=== PATIENT | male | born 1955 | race Caucasian/White ===

== ENCOUNTER 2023-06-28 14:56 | Outpatient (CLI) | payer OTHER, SELFPAY ==
--- NOTE | ~2023-06-28 | CT_ITS ---
EXAMINATION: CTA chest DATE: 06/28/2023 15:33 INDICATION: Thoracic aortic ectasia TECHNIQUE: Computed tomography (CT) of the chest was performed with 100 mL Omnipaque-350 intravenous contrast in the arterial phase. Automated exposure control and iterative reconstruction technique wer e employed. The dose-length product was 813.53 mGy-cm. COMPARISON: None. FINDINGS: CHEST: Thoracic aorta: Mild arch calcification. Normal arch anatomy. Maximum transverse dimension of the asc ending aorta is 4.4 cm. Maximum transverse dimension of the descending aorta is 2.6 cm. Lung parenchyma and airways: Bibasilar scarring. Dependent 13 mm somewhat lobulated appearing mixed d ensity focus in the distal trachea just above the level of the bhavik. Multiple sub-6 mm pulmonary no dules. Thoracic inlet, axillae and chest wall: Subcentimeter left thyroid lobe hypodensity which requires no additional evaluation. No axillary lymphadenopathy. Mediastinum: No mass or lymphadenopathy. Heart and pericardium: Mild cardiomegaly. No pericardial effusion.. Coronary artery calcifications: Absent. Pleura: No effusion or mass. Upper abdomen: Multiple simple bilateral renal cyst measuring up to 5.9 cm on the right. Thoracic bones: No acute osseous finding in the chest. Thoracic scoliosis. 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 12 mm mixed density focus in the distal trachea, likely airway debris/secretions, although an endobro nchial mass cannot be excluded. Comparison to outside studies would be helpful if available. Consider referral for bronchoscopy or short-term low-dose noncontrast CT follow-up to assess for persistence. Multiple sub-6 mm pulmonary nodules, requiring no additional evaluation unless the patient is at high risk, in which case consider an optional low-dose noncontrast CT in 12 months. Reviewed, dictated and finalized at location K. 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 12 mm mixed density focus in the distal trachea, likely airway debris/secretion s, although an endobronchial mass cannot be excluded. Comparison to outside sharon dies would be helpful if available. Consider referral for bronchoscopy or short -term low-dose noncontrast CT follow-up to assess for persistence. Multiple sub-6 mm pulmonary nodules, requiring no additional evaluation unless the patient is at high risk, in which case consider an optional low-dose noncon trast CT in 12 months.
[2023-06-28 15:18] LABS: Estimated Glomerular Filt Rate > 60
== END 2023-06-28 14:57 ==
PROVIDERS: PCP Internal Medicine Cardiovascular Disease; Visit Provider Internal Medicine Cardiovascular Disease
DX: I77.810 Thoracic aortic ectasia (principal); R07.9 Chest pain, unspecified; I35.1 Nonrheumatic aortic (valve) insufficiency; I34.0 Nonrheumatic mitral (valve) insufficiency; G47.33 Obstructive sleep apnea (adult) (pediatric); R60.0 Localized edema; I42.9 Cardiomyopathy, unspecified; R06.9 Unspecified abnormalities of breathing; I10 Essential (primary) hypertension; I48.0 Paroxysmal atrial fibrillation; Z13.6 Encounter for screening for cardiovascular disorders; Z13.9 Encounter for screening, unspecified; I50.32 Chronic diastolic (congestive) heart failure; R17 Unspecified jaundice
CPT/HCPCS: 71275; Q9967

== ENCOUNTER 2023-07-27 14:01 | Outpatient (CLI) | payer OTHER, SELFPAY ==
--- NOTE | ~2023-07-27 | CT_ITS ---
EXAMINATION: CT soft tissue neck w con DATE: 07/27/2023 14:40 INDICATION: Localized swelling, mass and lump, neck. TECHNIQUE: Computed tomography (CT) of the neck was performed with 100 mL Omnipaque-350 intravenous c ontrast. Automated exposure control and iterative reconstruction technique were employed. The dose-le ngth product was 471.48 mGy-cm. COMPARISON: Chest CT 06/28/2023 FINDINGS: The trachea is normal. There are no pathologically enlarged lymph nodes. There is mild plaq ue in the proximal internal carotid arteries with 0% stenosis relative to normal distal artery lumen diameters. There is ectasia of ascending aorta measuring 4.6 cm. There is severe cervical spondylosis . IMPRESSION: 1. No evidence of malignancy. Reviewed, dictated and finalized at location A.
--- NOTE | ~2023-07-27 | CT_ITS ---
EXAMINATION: CT brain w con DATE: 07/27/2023 14:39 INDICATION: Localized swelling, mass and lump, neck. TECHNIQUE: Computed tomography (CT) of the head was performed with 100 mL Omnipaque 240 intravenous c ontrast. The mA was adjusted according to patient size. Iterative reconstruction technique was employ ed. The dose-length product was 599.57 mGy-cm. COMPARISON: None FINDINGS: There is no intracranial hemorrhage, acute infarction, or abnormal intracranial mass lesion . The ventricles are normal in size. The orbits are normal. There is mild mucosal thickening in the e thmoid sinuses. The mastoid air cells are normal. IMPRESSION: 1. Normal brain. Reviewed, dictated and finalized at location A. IMPRESSION: 1. Normal brain.
[2023-07-27 14:35] LABS: Estimated Glomerular Filt Rate 55
== END 2023-07-27 14:02 ==
PROVIDERS: PCP Internal Medicine; Visit Provider Internal Medicine Cardiovascular Disease
DX: R22.1 Localized swelling, mass and lump, neck (principal)
CPT/HCPCS: 70460; 70491; Q9967

== ENCOUNTER 2023-08-19 11:02 | Emergency (ER) | payer MEDICARE, SELFPAY ==
--- NOTE | ~2023-08-19 | XR_ITS ---
EXAMINATION: XR knee LT 3V DATE: 08/19/2023 12:46 INDICATION: Left knee joint effusion TECHNIQUE: Weightbearing AP, lateral and sunrise views of the left knee were obtained COMPARISON: None. FINDINGS: Alignment is normal. No fracture. Chondrocalcinosis in the medial lateral compartments. Mild tricomp artmental osteoarthritis with mild joint space narrowing in the medial and patellofemoral compartment s and small marginal osteophyte in all 3 compartments. Increased density at the suprapatellar pouch w ith dystrophic calcification versus calcific debris either associated with synovitis or a moderate-si zed joint effusion. IMPRESSION: 1. Chronic calcinosis and mild medial and patellofemoral compartment, tricompartmental osteoarthritis at the left knee. 2. Moderate-sized knee joint effusion and/or synovitis with dystrophic calcification versus calcific debris at the suprapatellar pouch. Reviewed, dictated and finalized at location A. IMPRESSION: 1. Chronic calcinosis and mild medial and patellofemoral compartment, tricompar tmental osteoarthritis at the left knee. 2. Moderate-sized knee joint effusion and/or synovitis with dystrophic calcific ation versus calcific debris at the suprapatellar pouch.
[2023-08-19 11:05] VITALS: BP 122/80; PULSE 120; RESP 18; TEMP 36.6; O2SAT 100
--- NOTE | 2023-08-19 12:05 | ED.GENADULT ---
HPI - General Adult General Chief complaint: Extremity Injury, Lower Stated complaint: L knee swelling Time Seen by Provider: 08/19/23 12:05 Source: patient Mode of arrival: ambulatory Limitations: no limitations History of Present Illness HPI narrative: This is a 68-year-old male with PMH of osteoarthritis who presents to the ED with chief complaint of left knee pain for the past couple of days. He has longstanding history of arthritis in the right knee and is likely scheduling right knee replacement soon. He states that the left knee pain this week is brand new for him. Reports effusion to the left knee. No specific injury. He does a lot of walking and sitting to standing at his job. States that the pain is causing difficulty with transitioning from sitting to stand. States that once he is walking the pain seems to get a little better. Denies fevers, chills, numbness, weakness. Related Data Allergies Allergy/AdvReac Type Severity Reaction Status Date / Time naproxen AdvReac Nausea Verified 08/19/23 11:07 Review of Systems Review of Systems: All systems as dictated in HPI Exam Narrative: GENERAL: Well-appearing, well-nourished, and in no acute distress. HEAD: Normocephalic, atraumatic. EYES: PERRLA and EOMI. ENT: Nares clear, no rhinorrhea or epistaxis. Mucous membranes moist. Oropharynx without tonsillar hypertrophy exudate or other lesions. NECK: Supple. No adenopathy or masses. CHEST: No respiratory distress. Clear to auscultation. No wheezes rales or rhonchi HEART: Regular rate and rhythm. No murmur heard. Normal peripheral pulses. ABDOMEN: Soft, nontender, nondistended, normal active bowel sounds. MSK: Left knee effusion noted. Minimal warmth. Mild tenderness to the medial joint line. Otherwise no tenderness. Near full active and passive range of motion. Right knee benign SKIN: Warm, dry, no rash. NEURO: Alert and oriented x4. No focal deficits. PSYCH: Normal mood and affect. Course Vital Signs Vital signs: Vital Signs Temperature 97.8 F 08/19/23 11:05 Pulse Rate 120 H 08/19/23 11:05 Respiratory Rate 18 08/19/23 11:05 Blood Pressure 122/80 08/19/23 11:05 Pulse Oximetry 100 08/19/23 11:05 Oxygen Delivery Room Air 08/19/23 11:05 Temperature 97.8 F 08/19/23 11:05 Pulse Rate 120 H 08/19/23 11:05 Respiratory Rate 18 08/19/23 11:05 Blood Pressure 122/80 08/19/23 11:05 Pulse Oximetry 100 08/19/23 11:05 Oxygen Delivery Room Air 08/19/23 11:05 Medical Decision Making MDM Narrative Medical decision making narrative: This is a 68-year-old male who presents to the ED with chief complaint of atraumatic left knee pain for the past several days. Vitals are normal. Exam remarkable for the above. No evidence of infectious or inflammatory arthritis on exam. X-ray show osteoarthritis throughout the left knee. He has history of this in the right knee. We discussed that we will try a Medrol Dosepak while he waits is ortho appointment in a couple of weeks. Pt will be discharged in stable condition. Return precautions given and supportive measures discussed. Pt is understanding and agreeable with plan for discharge and follow-up with PCP. Vital Signs Vital Signs: Vital Signs Temperature 97.8 F 08/19/23 11:05 Pulse Rate 120 H 08/19/23 11:05 Respiratory Rate 18 08/19/23 11:05 Blood Pressure 122/80 08/19/23 11:05 Pulse Oximetry 100 08/19/23 11:05 Oxygen Delivery Room Air 08/19/23 11:05 Temperature 97.8 F 08/19/23 11:05 Pulse Rate 120 H 08/19/23 11:05 Respiratory Rate 18 08/19/23 11:05 Blood Pressure 122/80 08/19/23 11:05 Pulse Oximetry 100 08/19/23 11:05 Oxygen Delivery Room Air 08/19/23 11:05 Discharge Plan Discharge Clinical Impression: Arthritis of knee, left Patient Disposition: Home, Self-Care Condition: Stable Instructions: Antibiotic Form Additional Instructions: Your exam and imagin
[2023-08-19] MEDS: predniSONE 20 MG TABLET 40 MG PO (12:37)
== END 2023-08-19 13:19 | disposition home or self-care (01) ==
PROVIDERS: Emergency Provider Physician Assistant; PCP Internal Medicine
DX: M17.0 Bilateral primary osteoarthritis of knee (principal)
CPT/HCPCS: 73562; 99283; J7512

== ENCOUNTER 2024-08-29 13:58 | Outpatient (CLI) | payer MEDICARE, SELFPAY ==
--- OUTSIDE RECORDS SUMMARY | 2024-08-29 14:07 | XMS_ITS | Clinical Summary ---
Author Organization [facility] [place] Address [address] [address] Care Team Providers Care Medical Asst Name Role Phone Thomas Mae MD Primary Care Provider [phone] Active Problems No known active problems Encounters Date Type Department Care Team Description 06/07/2024 Results Follow-Up [facility] [place] [address] [place] [address] Ximena Cartagena, ANP TSH, LIPID PANEL, COMPREHENSIVE METABOLIC PANEL, CBC WITH DIFFERENTIAL 06/04/2024 8:40 AM CDT Office Visit [facility] [place] [address] [place] [address] Screening for condition (Primary Dx) from Last 3 Months Immunizations Immunization Administration Dates Next Due INFLUENZA VACCINE TRIVALENT SPLIT VIRUS, (6 MOS UP), 0.5ML (PF), IM 11/30/2023 Social History Tobacco Use Types Packs/Day Years Used Date Smoking Tobacco: Never Assessed Sex and Gender Information Value Date Recorded Sex Assigned at Not on file Legal Sex Male 6:57 PM [employer] Gender Identity Not on file Sexual Orientation Not on file Last Filed Vital Signs Vital Sign Reading Time Taken Comments Blood Pressure 108/68 06/04/2024 8:33 AM CDT Pulse - - Temperature - - Respiratory Rate - - Oxygen Saturation - - Inhaled Oxygen Concentration - - Weight 104.5 kg (230 lb 6.4 oz) 06/04/2024 8:33 AM CDT Height 182.9 cm (6') 06/04/2024 8:33 AM CDT Body Mass Index 31.25 06/04/2024 8:33 AM CDT Plan of Treatment Health Maintenance Due Date Last Done Comments Pre-Diabetes and Diabetes Screening 1955 COLORECTAL SCREENING 2002 Colorectal Cancer Screening 2002 FIT-DNA Q 3 years 2002 FIT/FOBT Q 1 year 2002 Flex Sig/CT Colonography Q 5 years 2002 ZOSTER VACCINE (1 of 2) 08/05/2007 RSV VACCINE (60+ or ) (1 - Risk 60-74 years 1-dose series) 2017 PNEUMOCOCCAL VACCINE 50+ YEA RS (2 of 2 - PPSV23) 01/19/2024 11/24/2023 DTAP/TDAP/TD VACCINES (2 - Td or Tdap) 09/13/2028 INFLUENZA VACCINE Completed 11/30/2023, 12/26/2019 Procedures Procedure Name Priority Date/Time Associated Diagnosis Comments CBC WITH DIFFERENTIAL Routine 06/04/2024 8:28 AM CDT Screening for condition COMPREHENSIVE METABOLIC PANEL Routine 06/04/2024 8:28 AM CDT Screening for condition LIPID PANEL Routine 06/04/2024 8:28 AM CDT Screening for condition TSH Routine 06/04/2024 8:28 AM CDT Screening for condition from Last 3 Months Results * (ABNORMAL) CBC WITH DIFFERENTIAL (06/04/2024 8:28 AM CDT) WBC 11.2(H) 3.8 - 10.8 Thousand/u L [facility] RBC 4.91 4.20 - 5.80 Million/uL [facility] HEMOGLOBIN 14.7 13.2 - 17.1 g/dL [facility] HEMATOCRIT 44.1 38.5 - 50.0 % [facility] MCV 89.8 80.0 - 100.0 fL [facility] MCH 29.9 27.0 - 33.0 pg [facility] MCHC 33.3 32.0 - 36.0 g/dL [facility] Comment: For adults, a slight decrease in the calculated MCHC value (in the range of 30 to 32 g/dL) is most likely not clinically significant; however, it should be interpreted with caution in correlation with other red cell parameters and the patient's clinical condition. RDW 13.4 11.0 - 15.0 % [facility] PLATELETS 281 140 - 400 Thousand/u L [facility] MPV 10.6 7.5 - 12.5 fL [facility] NEUTROPHIL ABSOLUTE 4,782 1,500 - 7,800 cells/uL [facility] LYMPHOCYTE ABSOLUTE 1,646 850 - 3,900 cells/uL [facility] MONOCYTE ABSOLUTE 795 200 - 950 cells/uL [facility] EOSINOPHIL ABSOLUTE 3,920(H) 15 - 500 cells/uL [facility] BASOPHILS ABSOLUTE 56 0 - 200 cells/uL [facility] NEUTROPHIL 42.7 % [facility] LYMPHOCYTES 14.7 % [facility] MONOCYTE 7.1 % [facility] EOSINOPHILS 35.0 % [facility] BASOPHILS 0.5 % [facility] COMMENT HEMATOLOGY [facility] Comment: Review of peripheral smear confirms automated results. Test Performed at: [facility] [address] [place] [id number] Dhruv Gentile MD Blood 06/04/2024 8:28 AM CDT 06/05/2024 4:31 AM CDT us Ximena Cartagena ANP HEMATOLOGY ORDERABLES Final Result [facility] [phone] [facility] [address] * TSH (06/04/2024 8:28 AM CDT) TSH 0.70 0.40 - 4.50 mIU/L [facility] Comment: Test Performed at: [facility] [address] [facility] [place] [address] Dhruv Gentile MD Blood 06/04/2024 8:28 AM CDT 06/05/2024 4:31 AM CDT us Ximena Cartagena [facility] CHEMISTRY ORDERABLES Final R esult [facility] [phone] [facility] [address] * (ABNORMAL) LIPID PANEL (06/04/2024 8:28 AM CDT) CHOLESTEROL 170 <200 mg/dL [facility] HDL 54 > OR = 40 mg/dL [facility] TRIGLYCERIDE 56 <150 mg/dL [facility] LDL CALCULATED 102(H) mg/dL (calc) [facility] Comment: Reference range: <100 Desirable range <100 mg/dL for primary prevention; <70 mg/dL for patients with CHD or diabetic patients with > or = 2 CHD risk factors. LDL-C is now calculated using the Enrrique-Eileen calculation, which is a validated novel method providing better accuracy than the Friedewald equation in the estimation of LDL-C. Enrrique MCKEON et al. MAGUI. 2013;310(19): 2451-0244 (http://education.I & Combine.IFTTT/faq/FIR886) CHOL/HDL RATIO 3.1 <5.0 (calc) [facility] NON-HDL CHOLESTEROL 116 <130 mg/dL (calc) [facility] Comment: For patients with diabetes plus 1 major ASCVD risk factor, treating to a non-HDL-C goal of <100 mg/dL (LDL-C of <70 mg/dL) is considered a therapeutic option. Test Performed at: [facility] [address] [facility] [place] [address] Dhruv Gentile MD Blood 06/04/2024 8:28 AM CDT 06/05/2024 4:31 AM CDT us Ximena Cartagena [facility] CHEMISTRY ORDERABLES Final R esult [facility] [phone] [facility] [address] [facility] [place] [address] * COMPREHENSIVE METABOLIC PANEL (06/04/2024 8:28 AM CDT) GLUCOSE 94 65 - 99 mg/dL [facility] Comment: Fasting reference interval BUN 16 7 - 25 mg/dL [facility] CREATININE 1.05 0.70 - 1.35 mg/dL [facility] GFR 78 > OR = 60 mL/min/1. 73m2 [facility] BUN/CREAT RATIO SEE NOTE: 6 - 22 (calc) [facility] Comment: Not Reported: BUN and Creatinine are within reference range. SODIUM 141 135 - 146 mmol/L [facility] POTASSIUM 4.2 3.5 - 5.3 mmol/L [facility] CHLORIDE 106 98 - 110 mmol/L [facility] CO2 27 20 - 32 mmol/L [facility] CALCIUM 9.2 8.6 - 10.3 mg/dL [facility] TOTAL PROTEIN 6.8 6.1 - 8.1 g/dL [facility] ALBUMIN 4.1 3.6 - 5.1 g/dL [facility] GLOBULIN 2.7 1.9 - 3.7 g/dL (calc) [facility] ALBUMIN/GLOBULIN RATIO 1.5 1.0 - 2.5 (calc) [facility] BILIRUBIN TOTAL 1.0 0.2 - 1.2 mg/dL [facility] ALKALINE PHOSPHATASE 80 35 - 144 U/L [facility] AST 13 10 - 35 U/L [facility] ALT 14 9 - 46 U/L [facility] Comment: Test Performed at: [facility] [address] [place] [address] Dhruv Gentile MD Blood 06/04/2024 8:28 AM CDT 06/05/2024 4:31 AM CDT us Ximena Cottrell Cartagena ANP CHEMISTRY ORDERABLES Final R esult [facility] [phone] [facility] [address] [place] [address] from Last 3 Months Insurance [employer] [facility] Care Teams Medical Asst Relationship Specialty Start Date End Date Thomas Mae MD [address] [address] PCP - General Internal Medicine 07/11/23
--- OUTSIDE RECORDS SUMMARY | 2024-08-29 14:07 | XMS_ITS | Clinical Summary ---
Author Organization [facility] Address [address] [place] [address] Care Team Providers Care Cattle Dipper Name Role Phone Thomas Mae MD Primary Care Provider [phone] Allergies Active Allergy Reactions Criticality Noted Date Comments Naproxen Nausea & Vomiting Low 09/07/2023 Medications albuterol HFA (PROVENTIL HFA,VENTOLIN HFA,PROAIR HFA) 90 mcg/actuation inhaler Inhale 2 puffs every 4 (four) hours as needed for wheezing or shortness of breath Active dilTIAZem CD (CARDIZEM CD) 300 mg 24 hr capsule Take 1 capsule (300 mg total) by mouth every morning 4 Active dofetilide (TIKOSYN) 500 mcg capsule Take 1 capsule (500 mcg total) by mouth 2 (two) times a day 4 Active Trelegy Ellipta 100-62.5-25 mcg inhaler Inhale 1 puff every morning Active losartan (COZAAR) 100 mg tablet Take 1 tablet (100 mg total) by mouth every morning 4 Active magnesium oxide (MAG-OX) 400 mg (241.3 mg elemental magnesium) tablet Take 1 tablet (400 mg total) by mouth 2 (two) times a day 4 Active metoprolol tartrate (LOPRESSOR) 50 mg immediate release tablet Take 1 tablet (50 mg total) by mouth 2 (two) times a day 4 Active montelukast (SINGULAIR) 10 mg tablet Take 1 tablet (10 mg total) by mouth nightly Active furosemide (LASIX) 20 mg tablet Take 1 tablet (20 mg total) by mouth every evening Active melatonin 5 mg tablet Take 1 tablet (5 mg total) by mouth nightly Active ergocalciferol (VITAMIN D) 50,000 unit capsule TAKE 1 CAP 2 X A WEEK FOR 8 WEEKS THEN FOLLOW UP WITH YOUR PCP. 16 capsule 4 Active acetaminophen (TYLENOL) 500 mg tablet Take 2 tablets (1,000 mg total) by mouth every 8 (eight) hours 90 tablet 4 Active oxyCODONE (ROXICODONE) 5 mg immediate release tabletIndication s:Pain Take 1 tablet (5 mg total) by mouth every 4 (four) hours as needed for pain 30 tablet 4 Active senna-docusate (PERICOLACE) 8.6-50 mg Take 2 tablets by mouth daily 80 tablet 4 Active Eliquis 5 mg tablet Take 1 tablet (5 mg total) by mouth 2 (two) times a day HOLD X 7 DAYS AFTER SURGERY AND THEN RESUME 4 Active apixaban (ELIQUIS) 2.5 mg tablet Take 1 tablet (2.5 mg total) by mouth 2 (two) times a day for 7 days THEN RESUME ELIQUIS 5 MG TWICE DAILY PREVIOUSLY PRESCRIBED 14 tablet 4 Active traMADoL (ULTRAM) 50 mg tabletIndication s:Postoperative pain Take 1 tablet (50 mg total) by mouth every 8 (eight) hours as needed for pain 42 tablet 4 Active meloxicam (MOBIC) 15 mg tablet Take 0.5 tablets (7.5 mg total) by mouth daily 30 tablet [address] (PROTONIX) 20 mg EC tabletIndication s:Mucositis Prophylaxis Take 1 tablet (20 mg total) by mouth daily FOR GI PROTECTION WHILE TAKING MELOXICAM 30 tablet 4 Active Active Problems Problem Noted Date Diagnosed Date Arthritis of right knee 12/30/2023 Primary osteoarthritis of right knee 09/19/2023 Knee pain 01/11/2012 Surgical History Surgery Date Site/Laterality Comments HERNIA REPAIR KNEE SURGERY 02/28/1978 - 02/27/1979 TONSILLECTOMY WISDOM TOOTH EXTRACTION COLONOSCOPY Medical History Medical History Date Comments A-fib (HCC) HTN (hypertension) History of cardioversion Family History Medical History Relation Name Comments Anesthesia problems Neg Hx Social History Tobacco Use Types Packs/Day Years Used Date Smoking Tobacco: Never Passive Smoke Exposure: Never Smokeless Tobacco: Never Tobacco Cessation:Counseling Given: Not Answered AUDIT-C Answer Date Recorded Q1: How often do you have a drink containing alcohol? Never 12/15/2023 Q2: How many drinks containi ng alcohol do you have on a typical day when you are drinking? Patient does not drink Q3: How often do you have si x or more drinks on one occasion? Never 12/15/2023 Personal Safety Answer Date Recorded Have you ever been in or are you currently in a harmful physical or emotional relationship or is someone making you feel afraid or unsafe? 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 Gender Identity Not on file Sexual Orientation Not on file Obstetrics History Last Filed Vital Signs Vital Sign Reading Time Taken Comments Blood Pressure 124/64 12/30/2023 1:15 PM CDT Pulse 63 12/30/2023 1:15 PM CDT Temperature 36.8 C (98.2 F) 12/30/2023 1:15 PM CDT Respiratory Rate 30 12/30/2023 12:25 PM CDT Oxygen Saturation 95% 12/30/2023 1:15 PM CDT Inhaled Oxygen Concentration - - Weight 103.4 kg (228 lb) 12/30/2023 6:20 AM CDT Height 182.9 cm (6') 12/30/2023 6:20 AM CDT Body Mass Index 30.92 12/30/2023 6:20 AM CDT Plan of Treatment Health Maintenance Due Date Last Done Comments Colon Cancer Screening-Colonoscopy 1955 Depression Screening 1955 Hepatitis C Screening 1955 Prostate Cancer Screening-PSA 1957 Hepatitis B Screening 08/05/1975 Zoster Vaccine (1 of 2) 08/05/2007 Well Visit 65+ 2022 Covid-19 Vaccine (3 - 2023-2 5 season) 2023 05/05/2020, 05/06/2019 Pneumococcal vaccine 65+ (2 of 2 - PPSV23) 01/19/2024 11/24/2023 Influenza Vaccine (#1) 2024 , 01/20/2022, 01/02/2021, Additional history exists Fall Risk Assessment 12/29/2024 12/30/2023 DTaP/Tdap/Td Vaccine (2 - Td or Tdap) 09/13/2028 09/13/2018 Medical Devices Implanted Type Area Calender Let Off Helper Device Identifier Shelf Expiration Date Model / Serial / Lot [employer] Attune Fb Tib Base Sz 9 Por [id number] - [id number] Implanted:Qty: 1 on 12/30/2023 at [facility] Right: Knee [employer] 02/27/2033 [id number] / / [id number] [employer] Attune Cruciate Retain Cementless Knee Right 8 Component Femoral [id number] - [id number] Implanted:Qty: 1 on 12/30/2023 at [facility] Right: Knee [employer] 05/28/2033 [id number] / / [id number] [employer] Insert Attune Right Medial Stabilized Size 8 10mm [id number] - [id number] Implanted:Qty: 1 on 12/30/2023 at [facility] Right: Knee [employer] 05/29/2031 [id number] / / [id number] Insurance [employer]IC[employer] PPO [employer] MED[employer] PPO Advance Directives For more information, please contact: [phone] * Full Code (Latest Code Status on File) Date Activated Date Inactivated Comments 12/30/2023 9:46 AM 12/30/2023 5:57 PM Care Teams Cattle Dipper Relationship Specialty Start Date End Date Thomas Mae MD [address] [place] [address] PCP - General Internal Medicine 11/04/22
--- OUTSIDE RECORDS SUMMARY | 2024-08-29 14:07 | XMS_ITS | Continuity of Care Document ---
Author Organization [facility] Address [address] [place] [address] Phone Care Team Providers Care Border Inspector Name Role Phone Eddy OD, Jaswant Unavailable Unavailable Procedures Procedure Date Office/outpatient Visit, [facility] Advance Directives Directive Yes / No Effective Date File Name No Information Encounters Encounter Description Practice Location Reason(s) For Visit Diagnoses Date Provider Providers Copied on Encounter [facility]pat [facility] [address], [place], [place], [id number], [place] tel:[phone] [facility] [address] [place] No Information [phone] Eddy OD Jaswant. [address] , [address], [place], [address], [place]. tel:[phone] Family History Family Member Type Diagnosis Age At Onset No Information Payers Payer name Insurance type Covered constitution party ID Authoriza tion(s) No Information Social History Type Description Quantity Date Captured Comments Sex Male Smoking Status No Information Chief Complaint And Reason For Visit No Information Reason For Referral Reason For Referral No Information History Of Present Illness Encounter Date Complaint History Of Prese nt Illness No Information Functional Status Date Functional Assessmen t No Information Instructions Date Instruction Additional Infor mation No Information Assessments Type Assessment Date No Information Patient Care Teams Name Effective Dates (start - stop) Status Members No Information
--- OUTSIDE RECORDS SUMMARY | 2024-08-29 14:07 | XMS_ITS | Clinical Summary ---
Author Organization [facility] Address [address] [place] [address] Care Team Providers Care Field Worker Name Role Phone Terrell Garcia MD Primary Care Provider [phone] Source Comments [facility],non-[facility] Affiliates and Associated Physician Practices is amultiple site organization consisting of ambulatory clinics and hospital sitesin [place], [place], [place] and [place]. This disclosure is being madepursuant to the Care Everywhere program and may not contain all information available regarding this patient. 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 Gender Identity Not on file Sexual Orientation Not on file Last Filed Vital Signs Vital Sign Reading Time Taken Comments Blood Pressure - - Pulse - - Temperature - - Respiratory Rate - - Oxygen Saturation - - Inhaled Oxygen Concentration - - Weight 102.1 kg (225 lb) 03/25/2015 9:47 AM MANAGER FEDERAL Height 182.9 cm (6') 03/25/2015 9:47 AM MANAGER FEDERAL Body Mass Index 30.52 03/25/2015 9:47 AM MANAGER FEDERAL Plan of Treatment Health Maintenance Due Date Last Done Comments COLOGUARD (AGES 45-75) - COL ON CA SCREENING 1957 COLON MONITORING 1957 COLONOSCOPY - COLON CA SCREENING 1957 CT COLONOGRAPHY - COLON CA SCREENING 1955 Colorectal Cancer Screening 1957 FIT - COLON CA SCREENING 1957 FLEX SIG - COLON CA SCREENING 1957 LIPID TESTING 1957 HEPATITIS C SCREENING 07/31/1975 DTAP/TDAP/TD VACCINES (1 - Tdap) 1976 PNEUMOCOCCAL VACCINE 50+ (1 of 1 - PCV) 08/05/2007 ZOSTER VACCINE (1 of 2) 08/05/2007 COVID-19 VACCINE (1 - 2023-2 5 season) 2023 DEPRESSION SCREENING 02/29/2024 INFLUENZA VACCINE (Season Ended) 2024 Respiratory Syncytial Virus (RSV) Vaccine Pt: or over 60 yrs (1 - 1-dose 75+ series) 2032 HEPATITIS B VACCINE Aged Out No longe r eligible based on patient's age to complete this topic HIB VACCINE Aged Out No longer eligi ble based on patient's age to complete this topic HPV VACCINE Aged Out No longer eligi ble based on patient's age to complete this topic MENINGOCOCCAL (Group B) VACC INE SHARED DECISION-MAKING Aged Out No longer eligibl e based on patient's age to complete this topic MENINGOCOCCAL GROUPS A/C/Y/W VACCINE Aged Out No longer eligible b ased on patient's age to complete this topic Insurance [facility] Care Teams Field Worker Relationship Specialty Start Date End Date Terrell Garcia MD PCP - General Internal Medicine 03/20/15
--- OUTSIDE RECORDS SUMMARY | 2024-08-29 14:07 | XMS_ITS | Data Portability ---
Author Organization [place] - [facility], Main Office Address [address] [place] [address] Assessment Encounter Date Assessment Date Assessment LastModified by Organization Details LastModified Time 11/11/2022 11/11/2022 HPI: Patient came in today for cortisone injection right knee. We referred him over to [place] for total knee arthroplasty. He is not going to be able to be seen in till January of this year. And knows that surgery will be at least after the of the year. This gives him enough time to get a cortisone injection today and still be able to proceed with surgery on time. He has severe lateral compartment osteoarthritis . Physical exam: 67-year-old male alert pleasant. He has a mild valgus alignment to the right knee. Moderate effusion. No redness or warmth. Range of motion is from 2-135 degrees. ChloraPrep was used on skin 20 mg Kenalog and 3 cc of 0.5% ropivacaine was injected into the right knee. Risk infection discussed. Impression: 67-year-old male who has severe lateral compartment osteoarthritis . At this point he will continue care with Dr. Ott for surgical treatment he will follow-up as needed. [email or web address] Not available 11/11/2022 15:42:11 Plan of Treatment Reminders Order Date Submit Date Provider Last Modified By Organization Details Last Modified Time Details Appointments None recorded. Lab PSA, serum or plasma [email or web address] [facility] (Lab), [address] [place], [address], 12:38:41 PSA, serum or plasma [email or web address] [facility] (Lab), [address], [place], [address], 4 08:48:31 Referral None recorded. Procedures injection/a spiration joint/bursa (PROC) - in office procedure, administere d by provider 2022 023 [email or web address] In-Office Order, Internal Use Only DO Not Attach Compendium DO Not Attach Compendium, Do Not Delete/merge, [address] 3 15:09:01 Surgeries None recorded. Imaging None recorded. Medication Orders montelukast 10 mg tablet 2024 025 [id number], [address] , [place], [place], [id number], 5 17:13:48 Trelegy Ellipta 100 mcg-62.5 mcg-25 mcg powder for inhalation 2024 025 [facility], [address] , [place], [place], [id number], 5 17:13:47 albuterol sulfate HFA 90 mcg/actuati on aerosol inhaler 2023 024 [email or web address] [facility]41412, [address] [place], [place], [id number], 4 12:30:04 Kenalog 10 mg/mL suspension for injection 2022 023 [email or web address] [facility] #66733, [address], [place], [id number], 3 07:34:45 ropivacaine (PF) 5 mg/mL (0.5 %) injection solution 2022 023 [email or web address] [facility] #24332, [address], [place], [place], [id number], 3 07:34:38 lidocaine 5 % topical patch 2022 023 [email or web address] [facility] #53449, [address], [place], [place], [id number], 08:50:49 Patient TargetsNo targets recorded. Patient Instructions Encounter Date Encounter Id Patient Instructions Last Modified By Organization Details Last Modified Time 07/13/2023 [id number] risk assessment* [email or web address] Not availabl e 07/14/2023 10:20:28 Personalized a lt Plan and Screening Recommendations Advance Directives - Do you have one? No Advance Directives - Do we have your advance directive on file in your health record? Primary Prevention/Interven tion (prevents or decreases the chance of common diseases from occurring) Smoking Risk: Non Smoker Alcohol Misuse Screening: Negative Weight: Overweight try to lose 10% of your body weight Physical activity: Need more exercise/physical activity Nutrition: Average Eat heart healthy diet Fall Risk (screened today): Low Vaccines Pneumococcal: Influenza: Declined Chronic Disease Risks Stroke: Intermediate Risk Active diagnosis, Continue current treatment plan Heart Attack: Low risk I have no recommendations Clogging of the Arteries: Low risk I have no recommendations Diabetes: Low Risk I have no recommendations Secondary Prevention/Interven tion (detects treatable diseases before they may cause symptoms, disability, or ) Prostate Cancer Screening: recommended Colon Cancer Screening: Colonoscopy Date Screening Last Performed: Eye Disease Screening: Your next exam in: goes yearly Dementia Risk: Low I have no recommendations Depression Screening: Negative I have no recommendations [email or web address] Not available 07/13/2023 16:39:50 Reason for Referral None Reported. Results Created Date Observation Date Name Description Value Unit Range Abnormal Flag Note LastModifiedBy Organization Detail LastModifiedTime 06/20/1906/19/2024 PSA SCREE N PSA medicare screen 9.39 NG/mL 0.00-[address] [facility] (Lab) [address], [place], [address], 06/19/2024 20:52:41 11/05/19 XR, knee No observ ation record ed. [email or web address] [facility] [address], [place], [address], 11/08/2022 11:45:52 11/05/19 23 10/20/2022 trans -thor acic echoc ardio gram (TTE) (PROC ) No observ ation record ed. [email or web address] Not Available 2022 11:39:13 11/05/19 23 10/20/2022 US, duple x, venou s, extre mity, compl ete No observ ation record ed. [email or web address] Not Available 2022 11:39:13 04/29/19 24 04/26/2023 US, echoc ardio gram No observ ation record ed. [email or web address] Not Available 2023 10:44:53 Result Notes None recorded. Problems Name Problem SNOMED Code Status Onset Date Resolution Date Notes Provider Name and Address Organization Details Recorded Time Paroxysma l atrial fibrillat ion with rapid ventricul ar response 5338428135 Completed 202106/20/2024 CHAKA Hernandez, [employer] 5 08:30:20 Asthma 122303394 Active 2016 Not Available [facility] 3 14:15:07 Gastroeso phageal reflux disease 169043880 Active 2016 Not Available [facility] 3 14:15:07 Dyspnea 557104108 Active 2021 Not Available [facility] 3 14:15:07 Knee pain Active 2020 Not Available [facility] 3 14:15:07 Knee pain Completed 201606/15/2017 CHAKA Hernandez, [employer] 3 08:51:37 Osteoarth ritis of right knee joint 82340083777 9100 Completed 201810/16/2021 Rola kelley RMA null, [place] [facility] 5 08:29:45 Arthritis 9322567 Active 2016 Not Available [facility] 3 14:15:07 Osteoarth ritis 481331888 Active 2021 knee Not Available [facility] 3 14:15:07 Dizziness 333596276 Completed 202107/05/2022 Rola kelley RMA null, [place] [facility] 5 08:30:26 Hernia of anterior abdominal wall 957819510 Active 2019 Not Available [facility] 3 14:15:07 Obesity 775437481 Active 2016 Not Available [facility] 3 14:15:07 Exacerbat ion of intermitt ent asthma 664432803 Active 2021 Not Available [facility] 3 14:15:07 Pain of right knee joint 71025372649 4100 Completed 202110/16/2021 Rola kelley RMA null, [place] [facility] 3 08:51:41 Essential hypertens ion 66885409 Active 2016 Not Available [facility] 3 14:15:07 Essential tremor 777887142 Active 2019 Not Available [facility] 3 14:15:07 Allergic rhinitis 26251807 Active 2016 Not Available [facility] 3 14:15:07 Sleep apnea 21256234 Active 2022 Not Available [facility] 3 14:15:07 Pain of right knee joint 11053714794 4100 Completed 202207/05/2022 Rola kelley RMA null, [place] [facility] 3 08:51:41 Postural dizziness 596030086 Completed 202206/20/2024 Rola kelley RMA null, [place] [facility] 5 08:29:51 Dizziness 952034235 Completed 202206/20/2024 Rola kelley RMA null, [place] [facility] 5 08:30:26 Paroxysma l atrial fibrillat ion 005158286 Active 2022 Rola kelley, RMA null, [place] [facility] 5 08:30:15 Osteoarth ritis of right knee joint 04976195215 9100 Completed 202206/20/2024 Rola kelley, RMA null, [place] - [facility] 5 08:29:45 Edema 176354606 Active 2023 Rola Vogel allie, RMA null, [place] [facility] 5 08:30:31 Prostate specific antigen above reference range 219096365 Active 2024 Marlys Lemus MA null, [facility] 5 14:37:55 Notes:[facility] home sleep study 02/09/22 AHI = 40, supine AHI = 64 [facility] titration sleep study 04/06/22 Respironics large Elayne nasal mask @ 11 cmH2O Medical History: Essential tremor Rhinitis Obesity with severe OSAHS, AHI = 40, 02/09/22, on CPAP c/o IVRC Hypertension EF 55% Mod AR/MR/TR Paroxysmal atrial fibrillation FIDEL Abdominal wall hernia PLMD OA Problem Notes None recorded. Procedures Surgical History Date Name Laterality Status Provider Name and Address Organization Details Recorded Time Orthopedic Surgery completed Not Available [facility] 04/28/2022 18:52:21 Hernia Repair completed Not Available [facility] 04/28/2022 18:52:21 Imaging Results None recorded. Procedure Notes None recorded. Medical Equipment None Reported. Allergies Allergen ID Allergen Name Allergen Category Reaction Reaction Severity Criticality Documentation Date Start Date Code Code System Note Provider Name and Address Organization Details Recorded Time 75620 Naprosyn medicatio n Not available Not available Not available 04/28/2022 2 RxNorm Not Available [facility] 18:54:06 Medications Name Sig Start Date Stop Date Status Note LastModified by Organization Details LastModified Time Prescriptio n - Change 11/08 completed Not Available Not Available Not Available meloxicam 15 mg tablet 06/19 completed Not Available Not Available Not Available bupivacaine HCl 0.5 % (5 mg/mL) injection solution In office injection administe red by the provider 08/06 completed Not Available Not Available Not Available Zithromax Z-Alistair 250 mg tablet Take 2 TABLET EVERY DAY by oral route for 1 day. then 1 tab a day for 4 days 11/25 completed Not Available Not Available Not Available tramadol 50 mg tablet TAKE 1 TABLET BY MOUTH EVERY 6 HOURS NEEDED active Not Available Not Available No t Available acetaminoph en 500 mg tablet TAKE 2 TABLETS BY MOUTH EVERY 8 HOURS active Not Available Not Available No t Available quinapril 40 mg tablet TAKE 1 TABLET BY MOUTH DAILY active Not Available Not Available No t Available pantoprazol e 20 mg tablet,elmo yed release TAKE 1 TABLET BY MOUTH DAILY FOR GI PROTECTIO N WHILE TAKING MELOXICAM 06/19 completed Not Available Not Available Not Available famotidine 20 mg tablet QD 03/29 completed Not Available Not Available Not Available magnesium oxide 400 mg (241.3 mg magnesium) tablet TAKE 1 TABLET BY MOUTH TWICE DAILY active Not Available Not Available No t Available Kenalog 10 mg/mL suspension for injection in office 02/07 completed [facility]: 0003- [phone]- [phone] Not Available Not Available Not Available diltiazem CD 300 mg capsule,ext ended release 24 hr TAKE 1 CAPSULE BY MOUTH EVERY DAY active Not Available Not Available No t Available lidocaine 5 % topical patch APPLY 1 PATCH BY TOPICAL ROUTE ONCE DAILY (MAY WEAR UP TO 12HOURS.) active Not Available Not Available No t Available metoprolol tartrate 50 mg tablet TAKE 1 TABLET BY MOUTH THREE TIMES DAILY active Not Available Not Available No t Available diclofenac sodium 75 mg tablet,elmo yed release TAKE 1 TABLET BY MOUTH TWICE DAILY NEEDED 11/04 completed Not Available Not Available Not Available montelukast 10 mg tablet TAKE 1 TABLET BY MOUTH EVERY NIGHT AT BEDTIME 2024 active JESSICA ok to rf Not Available Not Available Not Available hydrochloro thiazide 25 mg tablet TAKE 1 TABLET BY MOUTH DAILY 08/05 completed Not Available Not Available Not Available mupirocin 2 % topical ointment APPLY TO BOTH NOSTRILS TWICE DAILY FOR 5 DAYS PRIOR TO SURGERY 06/19 completed Not Available Not Available Not Available furosemide 20 mg tablet TAKE 1 TABLET BY MOUTH TWICE DAILY active Not Available Not Available No t Available ergocalcife rol (vitamin D2) 1,250 mcg (50,000 unit) capsule TAKE 1 CAPSULE BY MOUTH 2 TIMES A WEEK FOR 8 WEEKS. FOLLOW UP WITH PCP active Not Available Not Available No t Available methylpredn isolone 4 mg tablets in a dose pack FOLLOW PACKAGE DIRECTION S 06/19 completed Not Available Not Available Not Available albuterol sulfate HFA 90 mcg/actuati on aerosol inhaler INHALE 2 PUFFS BY MOUTH EVERY 4 HOURS NEEDED active Not Available Not Available No t Available losartan 100 mg tablet TAKE 1 TABLET BY MOUTH EVERY DAY active Not Available Not Available No t Available dofetilide 500 mcg capsule TAKE 1 CAPSULE BY MOUTH TWICE DAILY active Not Available Not Available No t Available doxycycline hyclate 100 mg tablet Take 1 tablet twice a day by oral route. active Not Available Not Available No t Available oxycodone 5 mg tablet 06/19 completed Not Available Not Available Not Available diltiazem 90 mg tablet TAKE 1 TABLET BY MOUTH FOUR TIMES DAILY 02/04 completed Not Available Not Available Not Available Adacel (Tdap Adolesn/Ignacio lt)(PF)2Lf- (2.5-5-3-5m cg)-5 Lf/0.5 mL IM susp active Not Available Not Available Not Available acetaminoph en 02/16 completed Not Available Not Available Not Available lidocaine (PF) 5 mg/mL (0.5 %) injection solution In office injection administe red by the provider 10/08 completed Not Available Not Available Not Available GaviLyte-N 420 gram oral solution 08/23 completed Not Available Not Available Not Available ropivacaine (PF) 5 mg/mL (0.5 %) injection solution in office 02/07 completed [facility] [phone] Not Available Not Available Not Available Eliquis 5 mg tablet TAKE 1 TABLET BY MOUTH TWICE DAILY active Not Available Not Available No t Available Eliquis 2.5 mg tablet 06/19 completed Not Available Not Available Not Available Multi Vitamin QD 02/16 completed Not Available Not Available Not Available Trelegy Ellipta 100 mcg-62.5 mcg-25 mcg powder for inhalation INHALE 1 PUFF BY MOUTH DAILY active Not Available Not Available No t Available Fluzone Quad 60 mcg (15 mcg x 4)/0.5 mL intramuscul ar susp. PHARMACY ADMINISTE RED active Not Available Not Available No t Available BinaxNOW COVID-19 Ag Self Test kit TEST DIRECTED TODAY 10/19 completed Not Available Not Available Not Available Vitals Date Recorded Body height Body mass index (BMI) Body weight Body temperature Heart rate Oxygen saturation Oxygen saturation in Arterial blood by Pulse oximetry Systolic blood pressure Diastolic blood pressure Provider Name and Address Organization Details Last Updated DateTime 5 175.26 cm 34 kg/m2 132074. 25 g 97.4 [degF] 79 /min 96 % 96 % 118 mm[Hg] 82 mm[Hg] Rola ingram Deng [facility] 5 16:53:08 Date Recorded Body height Body mass index (BMI) Body weight Body temperature Heart rate Oxygen saturation Oxygen saturation in Arterial blood by Pulse oximetry Systolic blood pressure Diastolic blood pressure Provider Name and Address Organization Details Last Updated DateTime 4 175.26 cm 33.5 kg/m2 798661. 03 g 98.8 [degF] 90 /min 83 % 83 % 120 mm[Hg] 80 mm[Hg] [facility] [place] [facility] 4 15:58:46 Date Recorded Body height Body mass index (BMI) Body weight Body temperature Heart rate Oxygen saturation Oxygen saturation in Arterial blood by Pulse oximetry Systolic blood pressure Diastolic blood pressure Provider Name and Address Organization Details Last Updated DateTime 3 175.26 cm 31.3 kg/m2 38398.5 8 g 97.5 [degF] 70 /min 96 % 96 % 130 mm[Hg] 80 mm[Hg] [facility]A Lopez [facility] [place] [facility] 3 11:13:35 Date Recorded Body height Provider Name an d Address Organization Details Last Updated DateTime 11/11/2022 175.26 cm CHAKA Walls [facility] [place] [facility] 11/11/2022 15:07:33 Date Recorded Body height Body mass index (BMI) Body weight Body temperature Heart rate Oxygen saturation Oxygen saturation in Arterial blood by Pulse oximetry Systolic blood pressure Diastolic blood pressure Provider Name and Address Organization Details Last Updated DateTime 4 175.26 cm 33.8 kg/m2 648961. 65 g 97.6 [degF] 71 /min 96 % 96 % 114 mm[Hg] 68 mm[Hg] Roladeng Patel juan jose Deng [facility] 4 16:05:24 Social History Question Answer Notes LastModified by [employer] Details LastModified Time Tobacco Smoking Status Never Smoker Anabelle Marte tim [facility] 11/11/2022 15:05:21 Do You Have An Advance Directive? No [id number] Information not available 04/28/2022 What Is Your Level Of Caffeine Consumption? Moderate [id number] Information not available 04/28/2022 How Much Tobacco Do You Chew? None [id number] Information not available 04/28/2022 What Type Of Diet Are You Following? REGULAR [id number] Information not available 04/28/2022 Which Illicit Or Recreational Drugs Have You Used? None [email or web address] Information not available 11/11/2022 What Was The Date Of Your Most Recent Tobacco Screening? 06/12/2020 [email or web address] Information not available 11/11/2022 Do You Use Sunscreen Routinely? Yes [email or web address] Information not available 11/11/2022 Sex: Unknown Functional Status Question Answer Note LastModified by [employer] Details LastModified Time What is your level of alcohol consumption? None [id number] Information not available 04/28/2022 Do you or have you ever used smokeless tobacco? 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 Never used electronic cigarettes [email or web address] Information not available 11/11/2022 What is your exercise level? Occasional [id number] Information not available 04/28/2022 Mental Status None recorded. Family History Relationship Description Onset Age of this Age Resolved Age Notes LastModified by Organization Details LastModified Time Father Diabetes mellitus [id number] Not available 04/28/2022 18:52:22 Father Heart disease [id number] Not available 04/28/2022 18:52:22 Father Coronary artery bypass graft [email or web address] Not available 15:55:35 Medical History Condition Response ARTHRITIS Y LUNG DISEASE/DISORDER Y HYPERTENSION Y Immunizations Vaccine Type Date Status Note Provider Nam e and Address Organization Details Recorded Time SARS-COV-2 (COVID-19) vaccine, UNSPECIFIED 0 completed Not Available [facility] 07/05/2022 14:15:08 Influenza, split virus, quadrivalent, preservative 0 completed Not Available [facility] 07/05/2022 14:15:08 Tdap 9 completed Not Available [facility] 07/05/2022 14:15:08 influenza, unspecified formulation 8 completed Not Available [facility] 07/05/2022 14:15:08 Pneumococcal conjugate PCV 13 4 completed Thomas Mae MD [address] [place] [address], [place], [address], [facility] 11/24/2023 17:20:02 Past Encounters Encounter ID Performer Location Encounter Start Date Encounter Closed Date Diagnosis/Indication Diagnosis SNOMED-CT Code Diagnosis ICD10 Code Diagnosis Note [id number] Thomas Mae MD [facility] Med [address] [place] [address] 06/12/2020 00:00:00 06/12/2020 10:10:56 [id number] MD [facility]YA [facility] [address] [address] 05/07/2021 00:00:00 05/07/2021 10:24:40 [id number] MD SATYA [facility] [address] [place] [address] 05/12/2021 00:00:00 05/12/2021 10:33:19 [id number] Tom Burt MD [facility] [address] [address] 08/06/2021 00:00:00 08/06/2021 09:39:37 [id number] MD [facility]YA [facility] [address] [address] 10/19/2021 00:00:00 10/19/2021 15:39:40 [id number] MD [facility]YA [facility] [address] [address] 11/05/2021 00:00:00 11/05/2021 09:41:27 [id number] MD [facility]YA [facility] [address] [address] 11/09/2021 00:00:00 11/09/2021 12:18:00 [id number] MD [facility] [address] [address] 12/10/2021 00:00:00 12/10/2021 15:45:32 [id number] MD [facility]YA [facility] [address] [address] 12/17/2021 00:00:00 12/17/2021 17:58:44 [id number] MD [facility]YA [facility] [address] [address] 02/04/2022 00:00:00 02/04/2022 09:33:13 [id number] MD [facility]YA [facility] [address] [address] 05/06/2022 09:02:34 05/06/2022 10:02:56 Pain of right knee joint 9757580763 75078 M25.561 [id number] MD [facility]YA [facility] [address] [address] 07/05/2022 11:08:46 07/05/2022 11:54:34 Essential hypertension 66814129 I10 under control Asthma 042041936 J45.90 9 on tramadol, avoid NSAIDS, try diclofenac cream Arthritis 4819059 M19.90 meds help Allergic rhinitis 223872 04 J30.9 meds help Gastroesop hageal reflux disease 519149621 K21.9 stable Obesity 407247559 E66.9 advised to lose more Hernia of anterior abdominal wall 283853529 K43.9 wants to wait for the surgery Essential tremor 2609747 09 G25.0 no change Adult heal th examination 502205871 Z00.00 Colonoscop y- 06/09/2018 - nlPSA- 05/2020FLU - 1COVID- 05/05/20 (J&J) Paroxysmal atrial fibrillation 359802194 I48.0 in sinus Sleep apnea 21318290 G47 .30 on cpap Screening for malignant neoplasm of prostate 066317169 Z12.5 Depression screening 171 882476 Z13.31 neg Body mass index 30+ - obesity 462162367 Z68.31 diet and exercise discussed [id number] Tom Burt MD S_[facility] [address] 08/05/2022 09:02:01 08/05/2022 09:30:53 Osteoarthritis of right knee joint 6856502565 27591 M17.11 [id number] Tom Burt MD [facility] [address] [address] 11/04/2022 09:04:36 11/08/2022 14:00:26 Osteoarthritis of right knee joint 5351498099 02159 M17.11 [id number] Thomas Mae MD [facility] [address] [address] 11/08/2022 11:01:42 11/08/2022 11:40:51 Essential hypertension 20108889 I10 under control Asthma 685150526 J45.90 9 UNDER CONTROL Arthritis 2771126 M19.90 TYLENOL, TRMADOL, NEEDS SURGERY Allergic rhinitis 703917 04 J30.9 meds help Gastroesop hageal reflux disease 536831488 K21.9 stable Obesity 753422765 E66.9 advised to lose more Hernia of anterior abdominal wall 975584589 K43.9 wants to wait for the surgery Essential tremor 1877683 09 G25.0 no change Adult [facility] examination 018327629 Z00.00 Colonoscop y- 06/09/2018 - nlPSA- 07/13/2022 FLU- OVID- 05/05/20 (J&J) Paroxysmal atrial fibrillation 594443007 I48.0 in sinus Sleep apnea 51565527 G47 .30 on cpap [id number] [place] [address] 11/11/2022 15:03:43 11/11/2022 15:58:17 Osteoarthritis of right knee joint 5123398490 20157 M17.11 [id number] Thomas Mae MD [facility] Internal [address] [place] [address] 07/13/2023 15:53:31 07/13/2023 16:27:45 Essential hypertension 83079874 I10 under control Asthma 365344426 J45.90 9 under control Arthritis 5159899 M19.90 TYLENOL, Allergic rhinitis 799801 04 J30.9 meds help Gastroesop hageal reflux disease 883960974 K21.9 stable Obesity 284760849 E66.9 advised to lose more Hernia of anterior abdominal wall 731471763 K43.9 wants to wait for the surgery Essential tremor 7406907 09 G25.0 no change Adult [facility] examination 828187669 Z00.00 Colonoscop y- 06/09/2018 - nlPSA- 07/13/2022 FLU- 2021 - thru workCOVID- 05/05/20 (J&J) Paroxysmal atrial fibrillation 976176918 I48.0 HR under control Sleep apnea 99201134 G47 .30 on cpap Edema 834493902 R60.9 on Furosemide Depression screening [id number] Z13.31 neg [id number] Thomas Mae MD [facility] Internal [address] [place] [address] 11/24/2023 15:48:29 11/24/2023 16:38:15 Essential hypertension 65065236 I10 under control Asthma 371511981 J45.90 9 under control Arthritis 5439892 M19.90 TYLENOL, Allergic rhinitis 871170 04 J30.9 meds help Gastroesop hageal reflux disease 893850142 K21.9 stable Obesity 252435749 E66.9 advised to lose Hernia of anterior abdominal wall 422187691 K43.9 wants to wait for the surgery Essential tremor 2426059 09 G25.0 no change Adult heal th examination 122904837 Z00.00 Colonoscop y- 06/09/2018 - nlPSA- 07/13/2022 FLU- will get through work - 05/05/20 (J&J) Paroxysmal atrial fibrillation 396819955 I48.0 in sinus today Sleep apnea 23778580 G47 .30 on cpap Edema 898307291 R60.9 on Furosemide Osteoarthr itis of right knee joint 2319777920 99309 M17.11 getting surgery, needs clearance from his cardiologi st as well Screening for malignant neoplasm of prostate 908391172 Z12.5 Administra tion of pneumococcal vaccine 53805861 Z23 [id number] Thomas Mae MD [facility] [address] [facility] [address] 06/19/2024 16:48:23 06/19/2024 17:41:55 Essential hypertension 04165658 I10 under control Asthma 004609775 J45.90 9 under control Arthritis 8745529 M19.90 TYLENOL, Allergic rhinitis 438103 04 J30.9 meds help Gastroesop hageal reflux disease 539129184 K21.9 stable Obesity 571841890 E66.9 advised to lose Hernia of anterior abdominal wall 736751230 K43.9 wants to wait for the surgery Essential tremor 2310955 09 G25.0 no meds needed Adult heal th examination 448439087 Z00.00 Colonoscop y- 06/09/2018 - nlPSA- 07/13/2022 FLU- will get through work - 05/05/20 (J&J) Paroxysmal atrial fibrillation 157502014 I48.0 in sinus today Sleep apnea 60273877 G47 .30 on cpap Edema 462026351 R60.9 on Furosemide Osteoarthr itis of right knee joint 8557112399 32932 M17.11 s/p surgery Screening for malignant neoplasm of prostate 553520440 Z12.5 Seasonal allergy 9408074 04 J30.2 Health Concerns Section Related Observation LastModified by Organization Detai ls LastModified Time None Recorded Concern Status LastModified by Organization Details LastModified Time None Recorded Advance Directives Directive N: Payers Insurance Date Sequence Insurance Name Policy Number Policy Mendoza Covered Member ID Mendoza Member ID Guarantor Name 06/16/2024 1 [employer] (MEDICARE REPLACEMENT/ ADVANTAGE - PPO) Jaswant Shaw [id number] Jaswant Shaw 07/13/2023 1 [place] BLUE SHIELD [facility] (EPO) [id number] Jaswant Shaw [id number] Jaswant Shaw Notes Date Note Type Note Provider Name and Address Organization Details Recorded Time 11/08/2022 text/html Pt is here today with some c/o he has, Paroxysmal A Fib- s/p cardioversion in 12/19 and , on Eliquis, Diltiazem and Metoprolol (cardiology)HTN- under control with meds,Meds- Losartan 100mg daily,GERD-better without meds Sleep apnea- on cpap, compliant, ( started by Dr Pompa )Asthma- feeling better, not using alb inhaler muchMeds- Albuterol PRN, Trelegy 100 mg qdAll Rhinitis-better with medsMeds- Montelukast 10 mg dailyRight knee pain, s/p surgery, still has problem, using a brace off and on- seen ortho , was on diclofenac, was stopped due to being on EliquisNEEDS SURGERYTAKING TRAMADOL PRN Tremor- only in the left hand, not getting worse,Leg cramps- walks 10-12 miles a day at work, doing stretching( [id number]-te-prb _ZOLTAN KENNEDY In 10/16) Thomas Mae MD [address] [place] [address], [address], [place], [address], [facility] [place] 11/08/2022 11:41:28 07/13/2023 text/html He is here today for his routine follow up. compliant to meds Paroxysmal A Fib- s/p cardioversion multiple times, still in AFib, on Eliquis,Meds- Diltiazem CD 300mg daily and Metoprolol 50mg TID(cardiology)HTN- under control with medsMeds- Losartan 100mg dailyGERD-better without meds Sleep apnea- on cpap, compliant,Asthma- feeling better, not using alb inhaler muchMeds- Albuterol PRN, Trelegy 100 mg qdAll Rhinitis-better with medsMeds- Montelukast 10 mg dailyRight knee pain, s/p surgery, still has problem, using a brace off and on- seen ortho , was on diclofenac, was stopped due to being on EliquisNEEDS SURGERYMeds- Tramadol 50mg as needed Tremor- only in the left hand, not getting worse, does not interfere with activitiesLeg cramps- used to walk 10-12 miles a day but not since being in A-FIB, has gained weight( [id number]-hi-[id number] _ZOLTAN KENNEDY In 10/16) Thomas Mae MD [address] [place] [address], [place] [address], [place], [address], [facility] [place] 07/14/2023 10:20:32 11/24/2023 text/html He is here today for his routine follow up. compliant to meds He will be having Right knee surgery on 12/30/2023 (Dr.Ryan Jones)[phone]. 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 Paroxysmal A Fib- s/p cardioversion multiple times, still in AFib, on Eliquis,Meds- Diltiazem CD 300mg daily and Metoprolol 50mg TID(cardiology), DofetilideHTN- under control with medsMeds- Losartan 100mg daily Edema- better with medsMeds- Furosemide 20mg dailyGERD-better without meds Sleep apnea- on cpap, compliant,Asthma- feeling better, not using alb inhaler muchMeds- Albuterol PRN, Trelegy 100 mg qdAll Rhinitis-better with medsMeds- Montelukast 10 mg dailyRight knee pain, s/p surgery, still has problem, using a brace off and on- seen ortho , was on diclofenac, was stopped due to being on EliquisNEEDS SURGERYMeds- Tramadol 50mg as needed Tremor- only in the left hand, not getting worse, does not interfere with activitiesLeg cramps- used to walk 10-12 miles a day but not since being in A-FIB, has gained weight( Ugzpgi-ms-idz _ZOLTAN KENNEDY In 10/16) Thomas Mae MD [address], [address], [place], [address], [facility] 11/24/2023 17:20:05 06/19/2024 text/html He is here today for his routine follow up. compliant to medsPT IS NOT FASTING ( [employer] ) Paroxysmal A Fib- s/p cardioversion multiple times, still in AFib,Meds- Diltiazem CD 300mg daily and Metoprolol 50mg TID(cardiology), Dofetilide, EliquisHTN- under control with medsMeds- Losartan 100mg daily Edema- better with medsMeds- Furosemide 20mg dailyGERD-better without meds Sleep apnea- on cpap, compliant, feels betterAsthma- feeling better, not using alb inhaler muchMeds- Albuterol PRN, Trelegy 100 mg qdAll Rhinitis-better with medsMeds- Montelukast 10 mg dailyRight knee pain, s/p surgery, still has problem, using a brace off and on- seen ortho , was on diclofenac, was stopped due to being on EliquisNEEDS SURGERYMeds- Tramadol 50mg as needed, Tremor- Both hands worse in the left hand, does not effect ADLLeg cramps- Magnesium is helping him a lot ( [id number]-wy-csd _ZOLTAN KENNEDY In 10/16) Thomas Mae MD [address], [address], [place], [address], [facility] 06/19/2024 17:14:41
--- OUTSIDE RECORDS SUMMARY | 2024-08-29 14:07 | XMS_ITS | Referral Summary ---
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 Gender Identity Not on file Sexual Orientation [...] 12/30/2023 6:20 AM CDT Plan of Treatment Not on file Medical Devices Implanted Type Area Gas Truck Driver Device Identifier Shelf Expiration Date Model / Serial / Lot [employer] Attune Fb Tib Base Sz 9 Por [id number] - [id number] Implanted:Qty: 1 on 12/30/2023 at [facility] Right: Knee [employer] 02/27/2033 [id number] / / [id number] [employer] Attune Cruciate Retain Cementless Knee Right 8 Component Femoral [id number] - [id number] Implanted:Qty: 1 on 12/30/2023 at [facility] Right: Knee [employer] 05/28/2033 [id number] / / [id number] [employer] Insert Attune Right Medial Stabilized Size 8 10mm [id number] - [id number] Implanted:Qty: 1 on 12/30/2023 at [facility] Right: Knee [employer] 05/29/2031 [id number] / / [id number] Insurance [employer] CHOICE MEDICARE PPO [employer] MEDICARE PPO Advance Directives For more information, please contact: [phone] * Full Code (Latest Code Status on File) Date Activated Date Inactivated Comments 12/30/2023 9:46 AM 12/30/2023 5:57 PM Care Teams Scientific Research Manager Relationship Specialty Start Date End Date Thomas Mae MD [address] [place] [address] PCP - General Internal Medicine 11/04/22
== END 2024-08-29 13:59 | disposition home or self-care (01) ==
LOC: ANHSURGERY 14:02
PROVIDERS: PCP Internal Medicine; Visit Provider Urology
DX: Z01.818 Encounter for other preprocedural examination (principal); R97.20 Elevated prostate specific antigen [PSA]
CPT/HCPCS: 87086

== ENCOUNTER 2024-09-04 02:01 | Day surgery (SDC) | payer MEDICARE, SELFPAY ==
[2024-08-28 14:58] VITALS: BMI 30.2
--- NOTE | 2024-08-28 15:12 | PC.NURSE ---
Report to the Outpatient Waiting Room, entrance under the green pavilion located off [facility], at time __1230pm on date _09/04/24 . Planned Procedure Time: __2:30pm .? Time changes happen often and if your time is changed the preop area will call you the afternoon before. - You and your visitor will be asked to self-screen and do not enter if you have any COVID symptoms. Please call surgeon if you need to reschedule. - A mask is optional within the hospital at this time. Patients may have clear liquids (water, carbonated beverages, clear teas, apple juice) until 3 hours prior to surgery with a maximum of 20 ounces. - No food from midnight until time of surgery and no smoking, or chewing tobacco (or any form of nicotine). No chewing gum, candy or mints. (11:30am) Take only the following medications with a SIP of water on the morning of surgery: ___, Diltiazem and Metoprolol, Dofetilide, and Inhaler Trelegy Ellipta DO NOT STOP ANY OF YOUR OTHER PRESCRIPTION MEDICATIONS PRIOR TO SURGERY EXCEPT THE FOLLOWING Hold all vitamins and supplements for [address] Grewal. date to take last dose is 08/26/24 Medications to discontinue per physician Eliquis for [address] Grewal Date to take last dose_08/31/24 Please no make-up, nail taiwanese, hairspray, perfume, deodorant, or body powder the day of surgery.? No jewelry (including any body piercings) or valuables the day of surgery, leave them at home.? Please take a shower or bath the night before, or the morning of, surgery with an antibacterial soap.? Wear comfortable, loose fitting clothing.? Enema PREP am of per Dr Katsikas - Jewelry must be removed prior to entering the operating room.? Rings and piercings that are not removed may be cut off. - The hospital will not accept responsibility for valuables.? - Please leave all valuables, including medications, at home the day of surgery. If you are going home after surgery, a licensed telephone directory distributor driver must drive you home.? - NO public transportation without another adult if you receive anesthesia. - We recommend that an adult stay with you for 24 hours following discharge. - We also recommend that you do not drive, make important decision, drink alcoholic beverages, or take any drugs that were not prescribed by your health care provider for at least 24 hours after your discharge time. Follow any additional instructions given to you from your surgeon. Telephone instructions given to __Patient and asked if any additional questions and then verbalized understanding. Patient advised to call surgeon office or pre surgery nurse liaison [phone] if any additional questions.
--- OUTSIDE RECORDS SUMMARY | 2024-09-04 02:06 | XMS_ITS | Clinical Summary ---
Author Organization [facility] Address [address] [place] [address] Care Team Providers Care Certified Peer Specialist Name Role Phone Terrell Garcia MD Primary Care Provider [phone] Source Comments [facility] Affiliates and Associated Physician Practices is amultiple site organization consisting of ambulatory clinics and hospital sitesin [place], [place], [place] and [place]. This disclosure is being madepursuant to the Care Everywhere program and may not contain all information available regarding this patient. Last updated 17.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
--- OUTSIDE RECORDS SUMMARY | 2024-09-04 02:06 | XMS_ITS | Clinical Summary ---
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 Gender Identity Not on file Sexual Orientation [...] 09/13/2028 09/13/2018 Medical Devices Implanted Type Area Board Setter Device Identifier Shelf Expiration Date Model / Serial / Lot [employer] Attune Fb Tib Base Sz 9 Por [id number] - [id number] Implanted:Qty: 1 on 12/30/2023 at [facility] Right: Knee [employer] 02/27/2033 [id number] / / [id number] [employer] Attune Cruciate Retain Cementless Knee Right 8 Component Femoral [id number] - [id number] Implanted:Qty: 1 on 12/30/2023 at [facility] Right: Knee [employer] 05/28/2033 [id number] / / [id number] [employer] Insert Attune Right Medial Stabilized Size 8 10mm [id number] - [id number] Implanted:Qty: 1 on 12/30/2023 at [facility] Right: Knee [employer] 05/29/2031 [id number] / / [id number] Insurance HU[employer] CHOICE MEDICARE PPO [employer] CHOICE MEDICARE PPO Advance Directives For more information, please contact: [phone] * Full Code (Latest Code Status on File) Date Activated Date Inactivated Comments 12/30/2023 9:46 AM 12/30/2023 5:57 PM Care Teams Glassware Verifier Relationship Specialty Start Date End Date Thomas Mae MD [address] [place] [address] PCP - General Internal Medicine 11/04/22
--- OUTSIDE RECORDS SUMMARY | 2024-09-04 02:06 | XMS_ITS | Referral Summary ---
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 Right: Knee [employer] 02/27/2033 [id number] / / [id number] [employer] Attune Cruciate Retain Cementless Knee Right 8 Component Femoral [id number] - [id number] Implanted:Qty: 1 on 12/30/[address] [facility] Right: Knee [employer] 05/28/2033 [id number] / / [id number] [employer] Insert Attune Right Medial Stabilized Size 8 10mm [id number] - [id number] Implanted:Qty: 1 on 12/30/[address] [facility] Right: Knee [employer] 05/29/2031 [id number] / / [id number] Insurance HU[employer]NA CHOICE MEDICARE PPO [employer] MEDICARE PPO Advance Directives For more information, please contact: [phone] * Full Code (Latest Code Status on File) Date Activated Date Inactivated Comments 12/30/2023 9:46 AM 12/30/2023 5:57 PM Care Teams Captain Fishing Vessel Relationship Specialty Start Date End Date Thomas Mae MD [address] [place] [address] PCP - General Internal Medicine 11/04/22
--- OUTSIDE RECORDS SUMMARY | 2024-09-04 02:06 | XMS_ITS | Data Portability ---
Author Organization [place] - [facility], Main Office Address [address] [place] [address] Assessment Encounter Date Assessment Date Assessment LastModified by Organization Details LastModified Time 11/11/2022 11/11/2022 HPI: Patient came in today for cortisone injection right knee. We referred him over to [facility] for total knee arthroplasty. He is not [...] PSA, serum or plasma 2024 025 [email or web address] [facility] (Lab), [address] [place], [address], 12:38:41 PSA, serum or plasma 2023 024 [email or web address] [facility] ([facility]), [address], [place], [address], 4 08:48:31 Referral None recorded. Procedures injection/a spiration joint/bursa (PROC) - in office procedure, administere d by provider 2022 023 [email or web address] In-Office Order, Internal Use Only DO Not Attach Compendium DO Not Attach Compendium, Do Not Delete/merge, 113[address] 3 15:09:01 Surgeries None recorded. Imaging None recorded. Medication Orders montelukast 10 mg tablet 2024 025 [facility]79058, [address] , [place], [place], [id number], 5 17:13:48 Trelegy Ellipta 100 mcg-62.5 mcg-25 mcg powder for inhalation 2024 025 [facility], [address] , [place], [place], [id number], 5 17:13:47 albuterol sulfate HFA 90 mcg/actuati on aerosol inhaler 2023 024 [email or web address] [facility] #94861, [address] [place], [place], [id number], 4 12:30:04 Kenalog 10 mg/mL suspension for injection 2022 023 [email or web address] [facility] #91204, [address], [id number], 3 07:34:45 ropivacaine (PF) 5 mg/mL (0.5 %) injection solution 2022 023 [email or web address] [facility] #76566, [address], [place], [place], [id number], 3 07:34:38 lidocaine 5 % topical patch 2022 023 [email or web address] [facility]91279, [address], [place], [place], [id number], 08:50:49 Patient TargetsNo targets recorded. Patient Instructions Encounter Date Encounter Id Patient Instructions Last Modified By Organization Details Last Modified Time 07/13/2023 [id number] risk assessment* [email or web address] Not availabl e 07/14/2023 [...] Depression Screening: Negative I have no recommendations Not available 07/13/2023 16:39:50 Reason for Referral None Reported. Results Created Date Observation Date Name Description Value Unit Range Abnormal Flag Note LastModifiedBy Organization Detail LastModifiedTime 06/20/1906/19/2024 PSA SCREE N PSA medicare screen 9.39 NG/mL 0.00-4 .00 high Not Available [facility] (Lab) [address], [place], [address], 06/19/2024 20:52:41 11/05/19 XR, knee No observ ation record ed. [email or web address] [facility] [address], [place], [address], 11/08/2022 11:45:52 11/05/19 23 10/20/2022 trans -thor [...] fibrillat ion with rapid ventricul ar response 3249344967 Completed 202106/20/2024 CHAKA Hernandez, [email or web address] 5 08:30:20 Asthma 546433798 Active 2016 Not Available [facility] 3 14:15:07 Gastroeso phageal reflux disease 883422674 Active 2016 Not Available [facility] 3 14:15:07 Dyspnea 756930568 Active 2021 Not Available [facility] 3 14:15:07 Knee pain Active 2020 Not Available [facility] 3 14:15:07 Knee pain Completed 201606/15/2017 CHAKA Hernandez, [email or web address] 3 08:51:37 Osteoarth ritis of right knee joint 30361279281 9100 Completed 201810/16/2021 Rola kelley RMA null, [place] [facility] 5 08:29:45 Arthritis 3229393 Active 2016 Not Available [facility] 3 14:15:07 Osteoarth ritis 113109813 Active 2021 knee Not Available [facility] 3 14:15:07 Dizziness 358395944 Completed 202107/05/2022 Rola kelley RMA null, [place] [facility] 5 08:30:26 Hernia of anterior abdominal wall 438247750 Active 2019 Not Available [facility] 3 14:15:07 Obesity 249655353 Active 2016 Not Available [facility] 3 14:15:07 Exacerbat ion of intermitt ent asthma 828653029 Active 2021 Not Available [facility] 3 14:15:07 Pain of right knee joint 74653077474 4100 Completed 202110/16/2021 Rola kelley RMA null, [place] [facility] 3 08:51:41 Essential hypertens ion 77592752 Active 2016 Not Available [facility] 3 14:15:07 Essential tremor 459884278 Active 2019 Not Available [facility] 3 14:15:07 Allergic rhinitis 51028000 Active 2016 Not Available [facility] 3 14:15:07 Sleep apnea 66798237 Active 2022 Not Available [facility] 3 14:15:07 Pain of right knee joint 15335869965 4100 Completed 202207/05/2022 Rola kelley RMA null[place] [facility] 3 08:51:41 Postural dizziness 576959767 Completed 202206/20/2024 Rola kelley RMA null[place] [facility] 5 08:29:51 Dizziness 034197284 Completed 202206/20/2024 Rola kelley RMA null, [place] [facility] 5 08:30:26 Paroxysma l atrial fibrillat ion 410402293 Active 2022 Rola kelley, RMA null, [place] [facility] 5 08:30:15 Osteoarth ritis of right knee joint 23792741520 9100 Completed 202206/20/2024 Rola kelley, RMA null, [place] - [facility] 5 08:29:45 Edema 767089092 Active 2023 Rola Vogel allie, RMA null, [place] [facility] 5 08:30:31 Prostate specific antigen above reference range 433490398 Active 2024 Marlys Lemus MA null, [facility] 5 14:37:55 Notes:[facility] home sleep study 02/09/22 AHI = 40, supine AHI = 64 [facility] titration sleep study 04/06/22 Respironics large Elayne [...] Recorded Time Orthopedic Surgery completed Not Available [facility] 04/28/2022 18:52:21 Hernia Repair completed Not Available [facility] 04/28/2022 18:52:21 Imaging Results None recorded. Procedure Notes None recorded. Medical Equipment None Reported. Allergies Allergen ID Allergen Name Allergen Category Reaction Reaction Severity Criticality Documentation Date Start Date Code Code System Note Provider Name and Address Organization Details Recorded Time 59917 Naprosyn medicatio n Not available Not available Not available 04/28/2022 2 RxNorm Not Available [facility] 18:54:06 Medications Name Sig [...] suspension for injection in office 02/07 completed [facility]: 0003- 0494- 20 Not Available Not Available [...] %) injection solution in office 02/07 completed [facility] [phone] -064- 01 Not Available Not Available Not [...] in Arterial blood by Pulse oximetry Systolic And Diastolic Provider Name and Address Organization Details Last Updated DateTime 5 175.26 cm 34 kg/m2 473350. 25 g 97.4 [degF] 79 /min 96 % 96 % 118/82 mm[Hg] Rola ingram Deng Jott [facility] [employer] [facility] 5 16:53:08 Date Recorded Body height Body mass index (BMI) Body weight Body temperature Heart rate Oxygen saturation Oxygen saturation in Arterial blood by Pulse oximetry Systolic And Diastolic Provider Name and Address Organization Details Last Updated DateTime 4 175.26 cm 33.5 kg/m2 417997. 03 g 98.8 [degF] 90 /min 83 % 83 % 120/80 mm[Hg] Lilliana Valdovinos Deng [place] [employer] [facility] [employer] [facility] 4 15:58:46 Date Recorded Body height Body mass index (BMI) Body weight Body temperature Heart rate Oxygen saturation Oxygen saturation in Arterial blood by Pulse oximetry Systolic And Diastolic Provider Name and Address Organization Details Last Updated DateTime 3 175.26 cm 31.3 kg/m2 77705.5 8 g 97.5 [degF] 70 /min 96 % 96 % 130/80 mm[Hg] Rola ingram Deng [employer] [facility] [employer] [facility] 3 11:13:35 Date Recorded Body height Provider Name an d Address Organization Details Last Updated DateTime 11/11/2022 175.26 cm Lilliana Valdovinos Deng [employer] [facility] [employer] [facility] 11/11/2022 15:07:33 Date Recorded Body height Body mass index (BMI) Body weight Body temperature Heart rate Oxygen saturation Oxygen saturation in Arterial blood by Pulse oximetry Systolic And Diastolic Provider Name and Address Organization Details Last Updated DateTime 4 175.26 cm 33.8 kg/m2 465070. 65 g 97.6 [degF] 71 /min 96 % 96 % 114/68 mm[Hg] Roladeng ingram Deng [place] [employer] [facility] 4 16:05:24 Social History Question Answer Notes LastModified by [email or web address] Details LastModified Time Tobacco Smoking Status Never Smoker Anabelle Marte tim, Jott [facility] 11/11/2022 15:05:21 Do You Have An Advance Directive? No [id number] Information not available 04/28/2022 What Is Your Level Of Caffeine Consumption? Moderate [id number] Information not available 04/28/2022 How Much Tobacco Do You Chew? None [id number] Information not available 04/28/2022 What Type Of Diet Are You Following? REGULAR [id number] Information not available 04/28/2022 Which Illicit Or Recreational Drugs Have You Used? None [email or web address] Information not available 11/11/2022 What Was The Date Of Your Most Recent Tobacco Screening? 06/12/2020 Information not available 11/11/2022 Do You Use Sunscreen Routinely? Yes [email or web address] Information not available 11/11/2022 Sex: Unknown Functional Status Question Answer Note LastModified by [email or web address] Details LastModified Time What is your level of alcohol consumption? None [id number] Information not available 04/28/2022 Do you or have you ever used smokeless tobacco? 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 Never used electronic cigarettes [email or web address] Information not available 11/11/2022 What is your exercise level? Occasional [id number] 026 Information not available 04/28/2022 Mental Status None recorded. Family History Relationship Description Onset Age of this Age Resolved Age Notes LastModified by Organization Details LastModified Time Father Diabetes mellitus [id number] Not available 04/28/2022 18:52:22 Father Heart disease [id number] Not available 04/28/2022 18:52:22 Father Coronary artery bypass graft [email or web address] Not available 15:55:35 Medical History Condition Response LUNG DISEASE/DISORDER Y ARTHRITIS Y HYPERTENSION Y Immunizations Vaccine Type Date Status Note Provider Nam e and Address Organization Details Recorded Time SARS-COV-2 (COVID-19) vaccine, UNSPECIFIED 0 completed Not Available [facility] 07/05/2022 14:15:08 Influenza, split virus, quadrivalent, preservative 0 completed Not Available [facility] 07/05/2022 14:15:08 Tdap 9 completed Not Available [facility] 07/05/2022 14:15:08 influenza, unspecified formulation 8 completed Not Available [facility] 07/05/2022 14:15:08 Pneumococcal conjugate PCV 13 4 completed Thomas Mae MD [address] [place] [address], [address], [facility] 11/24/2023 17:20:02 Past Encounters Encounter ID Performer Location Encounter Start Date Encounter Closed Date Diagnosis/Indication Diagnosis SNOMED-CT Code Diagnosis ICD10 Code Diagnosis Note [id number] Thomas Mae MD S[facility] Internal Med [address] [address] 06/12/2020 00:00:00 06/12/2020 10:10:56 [id number] MD MARE [facility] [address] [address] 05/07/2021 00:00:00 05/07/2021 10:24:40 [id number] Thomas Mae MD [facility] [address] [place] [address] 05/12/2021 00:00:00 05/12/2021 10:33:19 [id number] Tom uBrt MD S_[facility] [address] [address] 08/06/2021 00:00:00 08/06/2021 09:39:37 [id number] Thomas Mae MD [facility] Internal Med [address] [address] 10/19/2021 00:00:00 10/19/2021 15:39:40 [id number] Tom Burt MD [facility] [address] [address] 11/05/2021 00:00:00 11/05/2021 09:41:27 [id number] MD SATYA [facility] Internal [address] [address] 11/09/2021 00:00:00 11/09/2021 12:18:00 [id number] MD SATYA [facility] [address] [address] 12/10/2021 00:00:00 12/10/2021 15:45:32 [id number] MD SATYA [facility] [address] [address] 12/17/2021 00:00:00 12/17/2021 17:58:44 [id number] Tom Burt MD [facility] [address] [address] 02/04/2022 00:00:00 02/04/2022 09:33:13 [id number] Tom Burt MD S[facility] [address] [address] 05/06/2022 09:02:34 05/06/2022 10:02:56 Pain of right knee joint 7065130311 79673 M25.561 [id number] Thomas Mae MD [facility] [address] [address] 07/05/2022 11:08:46 07/05/2022 11:54:34 Essential hypertension 73842017 I10 under control Asthma 658518104 J45.90 9 on tramadol, avoid NSAIDS, try diclofenac cream Arthritis 6058971 M19.90 meds help Allergic rhinitis 135462 04 J30.9 meds help Gastroesop hageal reflux disease 472904569 K21.9 stable Obesity 940705597 E66.9 advised to lose more Hernia of anterior abdominal wall 933318664 K43.9 wants to wait for the surgery Essential tremor 6225833 09 G25.0 no change Adult heal th examination 398547406 Z00.00 Colonoscop y- 06/09/2018 - nlPSA- 05/2020FLU - 2021COVID- 05/05/20 (J&J) Paroxysmal atrial fibrillation 073276929 I48.0 in sinus Sleep apnea 37840441 G47 .30 on cpap Screening for malignant neoplasm of prostate 052503598 Z12.5 Depression screening 171 304988 Z13.31 neg Body mass index 30+ - obesity 645489492 Z68.31 diet and exercise discussed [id number] Tom Burt MD S_[facility] [address] 08/05/2022 09:02:01 08/05/2022 09:30:53 Osteoarthritis of right knee joint 0401909092 67670 M17.11 [id number] Tom Burt MD [facility] [address] [address] 11/04/2022 09:04:36 11/08/2022 14:00:26 Osteoarthritis of right knee joint 7486027658 46962 M17.11 [id number] Thomas Mae MD [facility] Med [address] [address] 11/08/2022 11:01:42 11/08/2022 11:40:51 Essential hypertension 02653805 I10 under control Asthma 209193834 J45.90 9 UNDER CONTROL Arthritis 4658856 M19.90 TYLENOL, TRMADOL, NEEDS SURGERY Allergic rhinitis 171611 04 J30.9 meds help Gastroesop hageal reflux disease 537077233 K21.9 stable Obesity 978634703 E66.9 advised to lose more Hernia of anterior abdominal wall 863141105 K43.9 wants to wait for the surgery Essential tremor 9170808 09 G25.0 no change Adult [facility] examination 879470396 Z00.00 Colonoscop y- 06/09/2018 - nlPSA- 07/13/2022 FLU- OVID- 05/05/20 (J&J) Paroxysmal atrial fibrillation 290796160 I48.0 in sinus Sleep apnea 00510753 G47 .30 on cpap [id number] Tom Burt MD S_[address] [address] 11/11/2022 15:03:43 11/11/2022 15:58:17 Osteoarthritis of right knee joint 5471972384 70031 M17.11 [id number] Thomas Mae MD S_[facility] Internal [address] [place] [address] 07/13/2023 15:53:31 07/13/2023 16:27:45 Essential hypertension 35049589 I10 under control Asthma 156201118 J45.90 9 under control Arthritis 7093589 M19.90 TYLENOL, Allergic rhinitis 565661 04 J30.9 meds help Gastroesop hageal reflux disease 659331545 K21.9 stable Obesity 021384635 E66.9 advised to lose more Hernia of anterior abdominal wall 304310591 K43.9 wants to wait for the surgery Essential tremor 8851386 09 G25.0 no change Adult [facility] examination 785153913 Z00.00 Colonoscop y- 06/09/2018 - nlPSA- 07/13/2022- 2021 - thru workCOVID- 05/05/20 (J&J) Paroxysmal atrial fibrillation 551403540 I48.0 HR under control Sleep apnea 68795274 G47 .30 on cpap Edema 919136953 R60.9 on Furosemide Depression screening 171 285871 Z13.31 neg [id number] Thomas Mae MD [facility] Internal Med [address] [place] [address] 11/24/2023 15:48:29 11/24/2023 16:38:15 Essential hypertension 01359577 I10 under control Asthma 182887456 J45.90 9 under control Arthritis 4215159 M19.90 TYLENOL, Allergic rhinitis 549651 04 J30.9 meds help Gastroesop hageal reflux disease 896017585 K21.9 stable Obesity 307543731 E66.9 advised to lose Hernia of anterior abdominal wall 441598437 K43.9 wants to wait for the surgery Essential tremor 9033682 09 G25.0 no change Adult heal th examination 790161969 Z00.00 Colonoscop y- 06/09/2018 - nlPSA- 07/13/2022 FLU- will get through work - 05/05/20 (J&J) Paroxysmal atrial fibrillation 464210925 I48.0 in sinus today Sleep apnea 71612218 G47 .30 on cpap Edema 425936545 R60.9 on Furosemide Osteoarthr itis of right knee joint 1701512220 10240 M17.11 getting surgery, needs clearance from his cardiologi st as well Screening for malignant neoplasm of prostate 429542619 Z12.5 Administra tion of pneumococcal vaccine 63785199 Z23 [id number] Thomas Mae MD [facility] [address] [facility] [place] [address] 06/19/2024 16:48:23 06/19/2024 17:41:55 Essential hypertension 13647798 I10 under control Asthma 455547493 J45.90 9 under control Arthritis 5946507 M19.90 TYLENOL, Allergic rhinitis 750631 04 J30.9 meds help Gastroesop hageal reflux disease 646883879 K21.9 stable Obesity 126401284 E66.9 advised to lose Hernia of anterior abdominal wall 447018146 K43.9 wants to wait for the surgery Essential tremor 6360952 09 G25.0 no meds needed Adult heal th examination 261303240 Z00.00 Colonoscop y- 06/09/2018 - nlPSA- 07/13/2022 FLU- will get through work OVI - 05/05/20 (J&J) Paroxysmal atrial fibrillation 916308686 I48.0 in sinus today Sleep apnea 34294297 G47 .30 on cpap Edema 227095823 R60.9 on Furosemide Osteoarthr itis of right knee joint 3436781639 85383 M17.11 s/p surgery Screening for malignant neoplasm of prostate 344234167 Z12.5 Seasonal allergy 2974491 04 J30.2 Health Concerns Section Related Observation LastModified by Organization Detai ls LastModified Time None Recorded Concern Status LastModified by Organization Details LastModified Time None Recorded Advance Directives Directive N: Payers Insurance Date Sequence Insurance Name Policy Number Policy Mendoza Covered Member ID Mendoza Member ID Guarantor Name 06/16/2024 1 [employer] (MEDICARE REPLACEMENT/ ADVANTAGE - PPO) Jaswant Shaw [id number] Jaswant Shaw 07/13/2023 1 [place] [facility]UE [facility] (EPO) [id number] Jaswant Shaw [id number] Jaswant Shaw Notes Date Note Type [...] miles a day at work, doing stretching( Wrftsm-ux-utw _ZOLTAN KENNEDY In 10/16) Thomas Mae MD [address] [facility] [address], [place], [address], [place] [employer] 11/08/2022 11:41:28 07/13/2023 text/html He is here [...] since being in A-FIB, has gained weight( Tpudsm-vm-cws _ZOLTAN KENNEDY In 10/16) Thomas Mae MD [address] [facility], [facility] [address], [place], [address], [place] - [place] [employer] 07/14/2023 10:20:32 11/24/2023 text/html He is here today for his routine follow up. compliant to meds He will be having Right knee surgery on 12/30/2023 (Dr.Ryan Jones)[phone]. 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
--- OUTSIDE RECORDS SUMMARY | 2024-09-04 02:06 | XMS_ITS | Clinical Summary ---
Author Organization [facility] [employer] [place] Address [address] [address] Care Team Providers Care Software Recruiter Name Role Phone Thomas Mae MD Primary Care Provider [phone] Active Problems No known active problems Encounters Date Type Department Care Team Description 06/07/2024 Results Follow-Up [facility] at Work [employer] [address] [place] [address] Ximena Cartagena, ANP TSH, LIPID PANEL, COMPREHENSIVE METABOLIC PANEL, CBC WITH DIFFERENTIAL from Last 3 Months Immunizations Immunization Administration Dates Next Due INFLUENZA VACCINE TRIVALENT SPLIT VIRUS, (6 MOS UP), 0.5ML (PF), IM 11/30/2023 Social History Tobacco Use Types Packs/Day Years Used Date Smoking Tobacco: Never Assessed Sex and Gender Information Value Date Recorded Sex Assigned at Not on file 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
--- OUTSIDE RECORDS SUMMARY | 2024-09-04 02:06 | XMS_ITS | Continuity of Care Document ---
Author Organization [facility] Address [address] [facility] [address] [place] [address] Phone Care Team Providers Care General Utility Maintenance Repairer Name Role Phone Eddy OD, Jaswant Unavailable Unavailable Procedures Procedure Date Office/outpatient Visit, [facility] Advance Directives Directive Yes / No Effective Date File Name No Information Encounters Encounter Description Practice Location Reason(s) For Visit Diagnoses Date Provider Providers Copied on Encounter Office/outpat ient Visit, [facility], [address], [place], [place], [address], [place] tel:[phone] [place] No Information 8-200 7 Eddy OD Jaswant. [address] , [address], [place], [address], [place]. tel:[phone] Family History Family Member Type Diagnosis Age At Onset No Information Payers Payer name Insurance type Covered alliance party ID Authoriza tion(s) No Information Social [...]
--- NOTE | 2024-09-04 12:33 | PM.IMHP ---
H&P: HPI History of Present Illness Date/Time: 09/04/24 12:33 Chief Complaint: Elevated PSA and abnormal MRI Narrative: 69-year-old male with elevated PSA and abnormal MRI here for prostate biopsy [facility] Social History Social History Smoking status: Never smoker Alcohol intake: never Substance use: never Living arrangements: with family Additional living arrangements comments: Spiritual care concerns: No Meds Home Medications and Allergies Home Medications ?Medication ?Instructions ?Recorded ?Confirmed ?Type acetaminophen 500 mg tablet 1,000 mg PO Q6H PRN pain 08/28/24 08/28/24 History albuterol sulfate 90 mcg/actuation 2 inh inhalation Q6-8H PRN 08/28/24 08/28/24 History aerosol inhaler bronchospasm apixaban 5 mg tablet (Eliquis) 5 mg PO Q12H 08/28/24 08/28/24 History diltiazem HCl 300 mg 300 mg PO DAILY 08/28/24 08/28/24 History capsule,extended release 24 hr dofetilide 500 mcg capsule 500 mcg PO Q12H 08/28/24 08/28/24 History fluticasone fur. 100 mcg-umeclid 1 inh inhalation Q24H 08/28/24 08/28/24 History 62.5 mcg-vilant 25 mcg inhalat.powder (Trelegy Ellipta) furosemide 20 mg tablet 20 mg PO Q8H PRN edema 08/28/24 08/28/24 History losartan 100 mg tablet 100 mg PO DAILY 08/28/24 08/28/24 History magnesium 200 mg tablet 200 mg PO DAILY 08/28/24 08/28/24 History metoprolol tartrate 50 mg tablet 50 mg PO Q12H 08/28/24 08/28/24 History montelukast 10 mg tablet 10 mg PO HS 08/28/24 08/28/24 History Allergies Allergy/AdvReac Type Severity Reaction Status Date / Time naproxen AdvReac Nausea Verified 08/28/24 14:51 Exam Const: General: cooperative and comfortable Resp: Effort & Inspection: normal respiratory effort Cardio: Rate: regular rate Rhythm: regular rhythm Assessment and Plan Assessment and plan (1) Elevated PSA: Code(s): R97.20 - Elevated prostate specific antigen [PSA] Status: Acute Assessment and Plan: Proceed with uronav us and prostate biopsy
--- NOTE | 2024-09-04 12:35 | WPDHPUPDATE1 ---
History and Physical Update Update Date/Time: 09/04/24 12:35 History and Physical has been reviewed, including an updated exam of the patient. There are NO changes in the patient's condition. Risks, benefits, and alternatives have been discussed and questions answered. Patient agrees to proceed with procedure.
[2024-09-04 12:45] VITALS: BP 130/74; PULSE 57; RESP 16; TEMP 36.9; O2SAT 96
[2024-09-04] MEDS: LACTATED RINGERS 1,000 ML 30 ML IV CONT (13:10)
--- NOTE | 2024-09-04 13:50 | S_PTH ---
PATIENT: Jaswant Lu LOC: [facility] U#:[id number] AGE/SX: 69/M ROOM: RE09/04/[address]: Haris Grewal, : 1955 BED: DIS: 09/04/2024 SPEC #: [id number] RECD: 09/05/24 10:12 STATUS: HAYLEY REJoe #: [id number] TILA: 09/04/24 13:[address]: Uri,Haris Matias DEPT: [facility] Surgical RECD BY: Marlee Badillo ENTERED: 09/05/24 10:14 SP TYPE: Surgical OTHR DR: Thomas Mae, Tissues: A - Prostate Bx B - Prostate Bx C - Prostate Bx D - Prostate Bx E - Prostate Bx F - Prostate Bx G - Prostate Bx H - Prostate Bx I - Prostate Bx J - Prostate Bx K - Prostate Bx L - Prostate Bx M - Prostate Bx Procedures: Unstained Slides Hematoxylin and Eosin Stain Prostate Biopsy
--- NOTE | 2024-09-04 13:58 | P.PNAN_ITS ---
Anes - Initial Pre Proc Eval Procedure: Operation Date: 09/04/24 14:30 Proposed Procedures p Trans Rectal Ultrasound Fusion Guided Prostate Biopsy - Haris Grewal MD Date/Time: 09/04/24 13:58 Surgeon: Haris Grewal MD Pre Op Diagnosis: Elev PSA Patient Data Age: 69 Gender: M Height: 1.85 m Weight: 101.6 kg Last Vital Signs Temp 36.9 C 09/04/24 12:45 Pulse 57 L 09/04/24 12:45 Resp 16 09/04/24 12:45 BP 130/74 09/04/24 12:45 Pulse Ox 96 09/04/24 12:45 O2 Del Method Room Air 09/04/24 12:45 Allergies Allergy/AdvReac Type Severity Reaction Status Date / Time naproxen AdvReac Nausea Verified 08/28/24 14:51 Home Medications ?Medication ?Instructions ?Recorded ?Confirmed ?Type acetaminophen 500 mg tablet 1,000 mg PO Q6H PRN pain 08/28/24 08/28/24 History albuterol sulfate 90 mcg/actuation 2 inh inhalation Q6-8H PRN 08/28/24 08/28/24 History aerosol inhaler bronchospasm apixaban 5 mg tablet (Eliquis) 5 mg PO Q12H 08/28/24 09/04/24 History diltiazem HCl 300 mg 300 mg PO DAILY 08/28/24 09/04/24 History capsule,extended release 24 hr dofetilide 500 mcg capsule 500 mcg PO Q12H 08/28/24 09/04/24 History fluticasone fur. 100 mcg-umeclid 1 inh inhalation Q24H 08/28/24 09/04/24 History 62.5 mcg-vilant 25 mcg inhalat.powder (Trelegy Ellipta) furosemide 20 mg tablet 20 mg PO Q8H PRN edema 08/28/24 08/28/24 History losartan 100 mg tablet 100 mg PO DAILY 08/28/24 09/04/24 History magnesium 200 mg tablet 200 mg PO DAILY 08/28/24 09/04/24 History metoprolol tartrate 50 mg tablet 50 mg PO Q12H 08/28/24 09/04/24 History montelukast 10 mg tablet 10 mg PO HS 08/28/24 09/04/24 History Patient hx anesthesia problems: none Family hx anesthesia problems: none Results Review: All pre-operative results and documents have been reviewed as part of the pre- operative evaluation. [facility] Past Medical History Medical History (Updated 09/04/24 @ 14:03 by Caleb Hyman MD) Atrial fibrillation Obesity SHADY (obstructive sleep apnea) Social History Social History Smoking status: Never smoker Alcohol intake: never Substance use: never Living arrangements: with family Additional living arrangements comments: Spiritual care concerns: No Anes - Eval Final PreProcedure Day of Procedure 09/04/24 13:58 Patient weight: obese Heart: regular rate and rhythm Lungs: clear to auscultation Airway: Mallampati scale class II Neurological: alert and oriented Last oral intake: >/= 8 hours ASA classification: III Emergent: no Anesthetic plan: proceed Anesthesia type and monitoring: general GIVS and standard monitoring Results Review: All pre-operative results and documents have been reviewed as part of the pre- operative evaluation. Informed Consent: The patient's anesthetic plan and its attendant risks and benefits were discussed with the patient/family/POA. Questions were solicited and answers provided to the satisfaction of the patient/family/POA.
[2024-09-04] MEDS: ceFAZolin 2 GM/D5W 50 ML 2 GM/50 ML BAG IVPB (14:13)
--- NOTE | 2024-09-04 14:26 | W.PM.PROC2 ---
Procedure Note - Detailed Date of Procedure 09/04/24 Pre-op Diagnosis Elev PSA Post-op Diagnosis Same Procedure Performed Uronav us and prostate biopsy Surgeon Haris Grewal MD Anesthesia General Description of Procedure Patient was taken to the operative suite correctly identified. Once anesthesia was obtained was placed in lateral decubitus position. Transrectal ultrasound was then performed. MRI image was fused to the ultrasound image. Three cores were taken from the region of interest and then 12 standard cores. Patient is taken recovery stable condition. He will call for path results in 1 week Estimated Blood Loss 0 Drains No Packing No Pathology Yes Complications No immediate complications Condition Stable Disposition PACU
[2024-09-04 14:30] VITALS: BP 115/62; PULSE 62; RESP 14; O2SAT 95
[2024-09-04 15:00] VITALS: BP 120/64; PULSE 52; RESP 15
== END 2024-09-04 15:28 | disposition home or self-care (01) ==
PROVIDERS: PCP Internal Medicine; Visit Provider Urology
PROC: (CPT 55700; principal; 2024-09-04 14:30)
DX: R97.20 Elevated prostate specific antigen [PSA] (principal); I48.91 Unspecified atrial fibrillation; G47.33 Obstructive sleep apnea (adult) (pediatric); E66.9 Obesity, unspecified; Z68.29 Body mass index [BMI] 29.0-29.9, adult; Z79.51 Long term (current) use of inhaled steroids; Z79.01 Long term (current) use of anticoagulants
CPT/HCPCS: 76872; 55700; G0416; J0690; J2003; J2250; J2704; J3010; J7120